=== PATIENT | male | born 1995 | race Caucasian/White ===

== ENCOUNTER 2022-06-11 10:16 | Emergency (ER) | payer MEDICAID ==
[~2022-06-11] VITALS: Ht 172.7 cm; Wt 68.0 kg
[2022-06-11 10:44] VITALS: BP_SYST 118
--- NOTE | 2022-06-11 12:48 | NUR ---
DR CHIRINOS IN [facility] FOR EXAM
--- NOTE | 2022-06-11 13:23 | NUR ---
covid and flu swab sample collected
--- NOTE | 2022-06-11 15:00 | NUR ---
Patient given written and verbal discharge instructions and verbalizes understanding. ER MD discussed with patient the results and treatment provided. Patient in stable condition. ID arm band removed. Patient educated on pain management and to follow up with PMD. Pain Scale Opportunity for questions provided and answered. Medication side effect fact sheet provided.
[2022-06-11 16:10] VITALS: BP_SYST 118
== END 2022-06-11 16:10 | disposition home or self-care (01) ==
LOC: SED 10:16
DX: J06.9 Acute upper respiratory infection, unspecified (principal); R50.9 Fever, unspecified; R05.9 Cough, unspecified; J02.9 Acute pharyngitis, unspecified; Z79.899 Other long term (current) drug therapy; Z20.822 Contact with and (suspected) exposure to COVID-19
CPT/HCPCS: 36415; 99283